=== PATIENT | female | born 1965 | race Caucasian/White ===

== ENCOUNTER 2017-11-03 06:14 | Inpatient (IN) | payer OTHER ==
[2017-11-02 08:26] VITALS: BMI 24.9
[2017-11-03] MEDS ORDERED: MIDAZOLAM HCL 2 MG/2 ML SINGLE DOSE VIAL ONE (07:09)
[2017-11-03] MEDS ORDERED: SUCCINYLCHOLINE CHLORIDE 200 MG/10 ML VIAL ONE ×3 (07:12→07:30)
[2017-11-03] MEDS ORDERED: ROCURONIUM BROMIDE 50 MG/5 ML VIAL ONE ×4 (07:12→11:55)
[2017-11-03] MEDS ORDERED: PROPOFOL 20 ML ONE ×4 (07:12→08:32)
[2017-11-03] MEDS ORDERED: DEXAMETHASONE SOD PHOSPHATE 4 MG/1 ML VIAL ONE (07:19)
[2017-11-03] MEDS ORDERED: ceFAZolin SODIUM 1 GM VIAL ONE ×4 (07:25→21:30)
[2017-11-03] MEDS ORDERED: HEPARIN NA (PORCINE) 5,000 UNITS/ML 1ML VIAL ONE ×2 (07:43→07:47)
[2017-11-03] MEDS ORDERED: PAPAVERINE HCL 30 MG/1 ML 10 ML VIAL NR ONE ×2 (07:43→07:47)
[2017-11-03] MEDS ORDERED: BUPIVACAINE HCL/PF 0.25% (2.5MG/ML) 10 ML VIAL ONE (07:43)
--- NOTE | 2017-11-03 07:49 | HP ---
History & Physical Update - History History: No Change - Physical Physical: No Change - Assessment Assessment: No Change - Plan Plan: No Change (Full H&P in chart from 10/26/2017 from PMD)
[2017-11-03] MEDS ORDERED: CEFAZOLIN 1 GM in DEXTROSE 5%-WATER - 50 ML IVPB ONE (08:00)
[2017-11-03] MEDS ORDERED: BUPIVACAINE LIPOSOME/PF (EXPAREL) 266 MG/20 ML VIAL NR ONE ×2 (08:15→09:00)
[2017-11-03] MEDS: ceFAZolin SODIUM 1 GM VIAL IVPB ONE ×2 (08:30→16:45)
[2017-11-03] MEDS ORDERED: LIDOCAINE HCL/PF 2% SDV 5ML VIAL ONE (08:38)
[2017-11-03] MEDS ORDERED: LIDOCAINE 1%/EPI 1:100000 (20 ML MULTI DOSE VIAL) ONE (08:51)
[2017-11-03] MEDS ORDERED: LIDOCAINE 1%/EPI 1:100000 (20 ML MULTI DOSE VIAL) IJ ONE (09:00)
[2017-11-03] MEDS ORDERED: SODIUM CHLORIDE 0.9% P/F 10 ML VIAL IJ ONE (09:47)
[2017-11-03] MEDS ORDERED: NEOSTIGMINE METHYLSULFATE 0.5 MG/ML - 10 ML MDV ONE (12:09)
[2017-11-03] MEDS ORDERED: GLYCOPYRROLATE 0.2 MG/1 ML VIAL ONE ×2 (12:09→13:08)
[2017-11-03] MEDS ORDERED: ONDANSETRON 4 MG/2 ML VIAL ONE (12:37)
[2017-11-03] MEDS ORDERED: diazePAM 5 MG TABLET PO PRN (14:27)
[2017-11-03] MEDS ORDERED: oxyCODONE HCL 5 MG TABLET PO PRN (14:27)
[2017-11-03] MEDS ORDERED: DEXTROSE 5%-0.45% SALINE 1,000 ML IV SCH (14:30)
[2017-11-03] MEDS ORDERED: ONDANSETRON 4 MG/2 ML VIAL IVPUSH PRN ×2 (14:48→17:00)
[2017-11-03] MEDS ORDERED: ACETAMINOPHEN INJECTION 100 ML IVPB ONE (14:49)
[2017-11-03] MEDS: ACETAMINOPHEN 1000 MG/100 ML VIAL (NON FORMULARY) IVPB SCH ×2 (14:50→21:36)
--- NOTE | 2017-11-03 14:54 | OP ---
Operative Note - Note: Operative Date: 11/03/17 Pre-Operative Diagnosis: h/o left breast cancer with mastectomy Operation: left breast reconstruciton using lower abdominal tissue Surgeon: Billy Onofre Crossbow Maker: Michi Yates Anesthesiologist/PAGE TECHNICIAN: Kiki Hernandez Anesthesia: General Estimated Blood Loss (mls): 150 Drains, Volume Out (mls): 250 (fowler) Fluid Volume Replaced (mls): 2,200 Operative Report Dictated: Yes
[2017-11-03] MEDS ORDERED: LACTATED RINGERS SOLUTION 1,000 ML IV SCH (15:00)
[2017-11-03] MEDS: CEFAZOLIN 1 GM in DEXTROSE 5%-WATER - 50 ML IVPB SCH ×2 (18:03→22:32)
[2017-11-03] MEDS ORDERED: DEXTROSE 5%-WATER - 50 ML IVPB ONE (21:30)
[2017-11-03] MEDS: DOCUSATE SODIUM 100 MG CAPSULE (FP) PO SCH (21:37)
[2017-11-04] MEDS ORDERED: DEXTROSE 5%-WATER - 50 ML IVPB ONE ×4 (03:53→21:29)
[2017-11-04] MEDS ORDERED: ceFAZolin SODIUM 1 GM VIAL ONE ×4 (03:53→21:29)
[2017-11-04] MEDS: ACETAMINOPHEN 1000 MG/100 ML VIAL (NON FORMULARY) IVPB SCH ×2 (03:57→09:11)
[2017-11-04] MEDS: CEFAZOLIN 1 GM in DEXTROSE 5%-WATER - 50 ML IVPB SCH ×4 (04:55→22:17)
--- NOTE | 2017-11-04 07:20 | PN ---
Progress Note (short form) - Note Progress Note: POD#1 s/p delayed left breast reconstruction with RAPHAEL flap. Did well overnight. Pain well controlled on IV Tylenol. Tolerating ice chips. AVSS I/O (overnight): 1087/1056 UO: 1000 KAT Breast:103 KAT Abdomen:56/55 Left breast soft, incisions C/D/I; Flap skin paddle warm, normal capillary refill, biphasic doppler signal Abdomen soft, ND, incisions C/D/I A/P: POD#1 s/p delayed left breast recon with RAPHAEL flap -Continue Q1 hour flap checks, Q2 at 2pm -Start clear liquid diet (no caffeine or chocolate), advance as tolerated -Daily ASA -Start Lovenox 40 daily -Hep lock IVF -OOB to chair->D/C janeth once OOB -PT consult -Social work consult for VNS for KAT drain care and incision/flap monitoring ( anticipated D/C 11/05/17) -Encourage IS -Continue Ancef -Oxycodone/Valium prn -Call with any [phone]
[2017-11-04] MEDS ORDERED: DEXTROSE 5%-0.45% SALINE 1,000 ML IV SCH (08:00)
[2017-11-04] MEDS: DOCUSATE SODIUM 100 MG CAPSULE (FP) PO SCH ×2 (10:59→21:37)
[2017-11-04] MEDS: ENOXAPARIN NA (PORCINE) 40 MG/0.4 ML DISP.SYRIN SQ SCH (10:59)
[2017-11-04] MEDS: ASPIRIN 325 MG TABLET PO SCH (10:59)
--- NOTE | 2017-11-04 11:10 | PN ---
Teaching Attending Note Name of Resident: Lila Harman ATTENDING PHYSICIAN STATEMENT I saw and evaluated the patient. I reviewed the resident's note and discussed the case with the resident. I agree with the resident's findings and plan as documented. SUBJECTIVE: Pt seen and examined in the ICU. Briefly, 52yo female with h/o left breast ca s/ p mastectomy who was electively admitted for left breast reconstruction with RAPHAEL flap now post op day 1. EBL 150mL, received 2200mL crystalloid, 250mL urine output. Good urine output overnight, now in chair, fowler out, tolerating clear liquids. +flatus. Pain controlled with current regimen. Denies shortness of breath, nausea or vomiting. OBJECTIVE: Last Vital Signs Temp Pulse Resp BP Pulse Ox 98.5 F 66 21 108/71 100 11/04/17 06:00 11/04/17 08:00 11/04/17 09:00 11/04/17 08:00 11/04/17 09:00 Intake & Output 11/01/17 11/02/17 11/03/17 11/04/17 23:59 23:59 23:59 23:59 Intake Total 3762.5 1087.5 Output Total 2197 1089 Balance 1565.5 -1.5 Weight 64.864 kg 68.901 kg Gen: NAD in chair Heart: RRR Lung: decreased breath sounds at the bases Abd: soft, appropriately tender Ext: no edema Drains: minimal serosanguinous fluid Active Medications Aspirin (Asa -) 325 mg PO DAILY [facility] Last Admin: 11/04/17 10:59 Dose: 325 mg Diazepam (Valium -) 5 mg PO Q8H PRN PRN Reason: ANXIETY Docusate Sodium (Colace -) 100 mg PO BID [facility] Last Admin: 11/04/17 10:59 Dose: 100 mg Enoxaparin Sodium (Lovenox -) 40 mg SQ DAILY [facility] Last Admin: 11/04/17 10:59 Dose: 40 mg Fentanyl (Sublimaze Injection -) 50 mcg IVPUSH [id number] PRN PRN Reason: PAIN-PACU ORDER X 4 DOSES ONLY Cefazolin Sodium 1 gm/ (Dextrose) 50 mls @ 100 mls/hr IVPB Q6H [facility] Ondansetron HCl (Zofran Injection) 4 mg IVPUSH Q6H PRN PRN Reason: NAUSEA AND/OR VOMITING Oxycodone HCl (Roxicodone -) 10 mg PO Q4H PRN PRN Reason: PAIN LEVEL 6-10 Oxycodone HCl (Roxicodone -) 5 mg PO Q4H PRN PRN Reason: PAIN LEVEL 1-5 ASSESSMENT AND PLAN: Left Breast Ca s/p Mastectomy s/p Left Breast Reconstruction with RAPHAEL Flap POD 1 - pain control - incentive spirometry - monitor drain output - flap monitoring - bowel regimen - OOB, activity, diet per surgery - DVT prophylaxis - continue post op ICU monitoring
--- NOTE | 2017-11-04 14:07 | CONSULT ---
Consultation: CONSULT REQUEST: We have been asked to medically evaluate this patient for post- op management. HISTORY OF PRESENT ILLNESS: 52F with PMH of Left Breast Ca s/p mastectomy who was admitted for elective Left breast reconstruction with a Deep Inferior Epigastric Planimeter Operator flap with Dr. Onofre. Pt tolerated procedure well, with estimated blood loss of 150ml. UOP of 1350ml overnight. Fowler removed this morning. Pt tolerating clear liquid diet. Pain is controlled with current pain regimen. (+) flatus, but (- ) BM. Pt denies nausea, vomiting, sob, abdominal pain, fever, chills. REVIEW OF SYSTEMS: CONSTITUTIONAL: Absent: fever, chills, diaphoresis HEENT: Absent: rhinorrhea, nasal congestion, ear pain, eye pain CARDIOVASCULAR: appropriate chest tightness/pain Absent: palpitations, irregular heart rate, lightheadedness, peripheral edema RESPIRATORY: Absent: cough, shortness of breath, dyspnea with exertion, orthopnea, wheezing, stridor GASTROINTESTINAL: Absent: abdominal pain, abdominal distension, nausea, vomiting, diarrhea, constipation GENITOURINARY: Absent: dysuria, hematuria MUSCULOSKELETAL: Absent: myalgia, arthralgia, joint swelling, back pain, neck pain SKIN: Absent: rash, itching, pallor NEUROLOGIC: Absent: headache, focal weakness or paresthesias, dizziness PSYCHIATRIC: Absent: anxiety, depression PHYSICAL EXAMINATION Vital Signs - 24 hr 11/03/17 11/03/17 11/03/17 14:31 14:45 15:00 Temperature 98.3 F Pulse Rate 82 76 73 Respiratory 14 16 18 Rate Blood Pressure 129/73 128/73 123/67 O2 Sat by Pulse 100 100 100 Oximetry (%) 11/03/17 11/03/17 11/03/17 15:15 15:30 15:45 Temperature Pulse Rate 59 L 68 69 Respiratory 18 16 18 Rate Blood Pressure 116/63 125/69 115/65 O2 Sat by Pulse 100 100 100 Oximetry (%) 11/03/17 11/03/17 11/03/17 16:00 16:15 16:30 Temperature Pulse Rate 88 88 86 Respiratory 14 16 14 Rate Blood Pressure 110/66 115/65 121/71 O2 Sat by Pulse 100 100 100 Oximetry (%) 11/03/17 11/03/17 11/03/17 16:44 16:45 17:33 Temperature 98.9 F 98.3 F Pulse Rate 74 86 76 Respiratory 16 16 17 Rate Blood Pressure 120/83 122/68 108/72 O2 Sat by Pulse 100 Oximetry (%) 11/03/17 11/03/17 11/03/17 20:00 20:58 22:00 Temperature 98.6 F 98.6 F Pulse Rate 67 70 Respiratory 14 13 16 Rate Blood Pressure 97/59 108/69 O2 Sat by Pulse 97 100 Oximetry (%) 11/04/17 11/04/17 11/04/17 00:00 02:00 04:00 Temperature 98.8 F Pulse Rate 80 66 62 Respiratory 18 14 14 Rate Blood Pressure 112/70 99/60 100/64 O2 Sat by Pulse 100 Oximetry (%) 11/04/17 11/04/17 11/04/17 06:00 06:09 08:00 Temperature 98.5 F Pulse Rate 68 66 Respiratory 16 22 Rate Blood Pressure 106/72 108/71 O2 Sat by Pulse 100 Oximetry (%) 11/04/17 11/04/17 11/04/17 09:00 10:00 12:00 Temperature 98.4 F Pulse Rate 72 89 Respiratory 21 20 20 Rate Blood Pressure 117/72 99/66 O2 Sat by Pulse 100 Oximetry (%) GENERAL: Awake, alert, and fully oriented, in no acute distress. Pt OOB to chair. HEAD: Normal with no signs of trauma. EYES: Extraocular movements intact, sclera anicteric, conjunctiva clear. No lid lag. EARS, NOSE, THROAT: Moist mucous membranes. NECK: Normal range of motion, supple without lymphadenopathy, JVD, or masses. LUNGS: CTAB. Incisions CDI. HEART: Regular rate and rhythm, normal S1 and S2 without murmur, rub or gallop. ABDOMEN: Soft, nontender, not distended, no guarding, no rebound. LOWER EXTREMITIES: Warm, well-perfused. No calf tenderness. No peripheral edema. NEUROLOGICAL: Cranial nerves II-XII grossly intact. Normal speech. PSYCHIATRIC: Cooperative. Good eye contact. Appropriate mood and affect. SKIN: Warm, dry, normal turgor, no rashes or lesions noted. DRAINS: Left upper breast, Left abdomen and Right abdomen all draining minimal amounts of serosanguinous fluid Active Medications Generic Name Dose Route Start Last Admin Trade Name Freq PRN Reason Stop Dose Admin Acetaminophen 650 mg 11/04/17 11:19 Tylenol - PO Q6H PRN PAIN LEVEL 1-5 Aspirin 325 mg 11/04/17 10:00 11/04/17 10:59 Asa - PO 325 mg DAILY MARIA GUADALUPE Administration Diazepam 5 mg 11/03/17 14:27 Valium - PO Q8H PRN ANXIETY Docusate Sodium 100 mg 11/03/17 22:00 11/04/17 10:59 Colace - PO 100 mg BID MARIA GUADALUPE Administration Enoxaparin Sodium 40 mg 11/04/17 10:00 11/04/17 10:59 Lovenox - SQ 40 mg DAILY MARIA GUADALUPE Administration Fentanyl 50 mcg 11/03/17 14:48 Sublimaze Injection - IVPUSH [id number] PRN PAIN-PACU ORDER X 4 DOSES ONLY Cefazolin Sodium 1 gm/ 50 mls @ 100 mls/hr 11/04/17 11:00 11/04/17 11:41 Dextrose IVPB 100 mls/hr Q6H MARIA GUADALUPE Administration Ondansetron HCl 4 mg 11/03/17 17:00 Zofran Injection IVPUSH Q6H PRN NAUSEA AND/OR VOMITING Oxycodone HCl 10 mg 11/03/17 14:27 Roxicodone - PO Q4H PRN PAIN LEVEL 6-10 Oxycodone HCl 5 mg 11/04/17 14:28 Roxicodone - PO Q4H PRN PAIN LEVEL 1-5 ASSESSMENT/PLAN: 52F with PMH of Left Breast Ca s/p mastectomy, admitted for elective Left breast reconstruction with a Deep Inferior Epigastric Planimeter Operator flap by Dr. Menchaca. # Left Breast Ca s/p mastectomy - s/p Left RAPHAEL flap with Dr. Onofre on 11/03/17 - POD #1 - post-op care per Surgery (Dr. Onofre): continue flap checks q2hr, fowler D/ Jorge A, OOB to chair, ASA 325mg daily - monitor KAT drain output - Incentive Spirometry - pain controlled with IV Ofirmev, pt completed last dose, now pain control with Oxycodone prn and Tylenol po prn - Zofran prn for nausea - Day 2 of IV Cefazolin - Valium prn for anxiety - Colace BID for bowel regimen # FEN/ppx - Fluids: po - Electrolytes: no labs - Nutrition: clear liquids - DVT ppx with Lovenox SQ - deconditioning ppx with PT # dispo - anticipated D/C tomorrow Dispo: We will continue to follow the patient. Thank you for this consultative opportunity. Visit type - Emergency Visit Emergency Visit: Yes ED Registration Date: 11/03/17 Care time: The patient presented to the Emergency Department on the above date and was hospitalized for further evaluation of their emergent condition. - New Patient This patient is new to me today: Yes Date on this admission: 11/04/17 - Critical Care Critical Care patient: Yes Total Critical Care Time (in minutes): 45 Critical Care Statement: The care of this patient involved high complexity decision making to prevent further life threatening deterioration of the patient 's condition and/or to evaluate & treat vital organ system(s) failure or risk of failure.
[2017-11-04] MEDS ORDERED: oxyCODONE HCL 5 MG TABLET PO PRN (14:28)
[2017-11-04] MEDS ORDERED: guaiFENesin 600 MG TABLET.ER (FP) PO PRN (16:38)
[2017-11-04] MEDS: oxyCODONE HCL 5 MG TABLET PO PRN (21:36)
[2017-11-04] MEDS: ACETAMINOPHEN 325 MG TABLET (FP) PO PRN (21:37)
[2017-11-05] MEDS: CEFAZOLIN 1 GM in DEXTROSE 5%-WATER - 50 ML IVPB SCH ×4 (06:00→22:43)
[2017-11-05] MEDS: oxyCODONE HCL 5 MG TABLET PO PRN ×2 (07:34→18:35)
[2017-11-05] MEDS: ACETAMINOPHEN 325 MG TABLET (FP) PO PRN ×2 (07:36→15:26)
[2017-11-05] MEDS: ASPIRIN 325 MG TABLET PO SCH (09:57)
[2017-11-05] MEDS: DOCUSATE SODIUM 100 MG CAPSULE (FP) PO SCH ×2 (09:57→22:42)
[2017-11-05] MEDS: ENOXAPARIN NA (PORCINE) 40 MG/0.4 ML DISP.SYRIN SQ SCH (09:57)
--- NOTE | 2017-11-05 09:59 | PN ---
Progress Note (short form) - Note Progress Note: Doing well but pain now in ambulation Will transfer to floor Probable discharge better
[2017-11-05] MEDS ORDERED: DEXTROSE 5%-WATER - 50 ML IVPB ONE ×4 (11:33→22:34)
[2017-11-05] MEDS ORDERED: ceFAZolin SODIUM 1 GM VIAL ONE ×4 (11:33→22:34)
--- NOTE | 2017-11-05 12:06 | PN ---
Teaching Attending Note Name of Resident: Lila Harman ATTENDING PHYSICIAN STATEMENT I saw and evaluated the patient. I reviewed the resident's note and discussed the case with the resident. I agree with the resident's findings and plan as documented. SUBJECTIVE: Patient seen and examined in the ICU. Awake and alert. Some musculoskeletal discomfort with deep breathing. Denies SOB. No acute events overnight. Intake & Output 11/02/17 11/03/17 11/04/17 11/05/17 23:59 23:59 23:59 23:59 Intake Total 3762.5 2307.5 290 Output Total 2197 1958 45 Balance 1565.5 349.5 245 Weight 143 lb 151 lb 14.4 oz 150 lb 6.4 oz Last Vital Signs Temp Pulse Resp BP Pulse Ox 98.7 F 75 17 112/73 98 11/05/17 06:00 11/05/17 06:00 11/05/17 06:00 11/05/17 06:00 11/05/17 09:00 Active Medications Acetaminophen (Tylenol -) 650 mg PO Q6H PRN PRN Reason: PAIN LEVEL 1-5 Last Admin: 11/05/17 07:36 Dose: 650 mg Aspirin (Asa -) 325 mg PO DAILY [facility] Last Admin: 11/05/17 09:57 Dose: 325 mg Diazepam (Valium -) 5 mg PO Q8H PRN PRN Reason: ANXIETY Last Admin: 11/04/17 18:33 Dose: 5 mg Docusate Sodium (Colace -) 100 mg PO BID [facility] Last Admin: 11/05/17 09:57 Dose: 100 mg Enoxaparin Sodium (Lovenox -) 40 mg SQ DAILY [facility] Last Admin: 11/05/17 09:57 Dose: 40 mg Guaifenesin (Mucinex -) 600 mg PO Q12H PRN PRN Reason: COUGH Last Admin: 11/04/17 17:33 Dose: 600 mg Cefazolin Sodium 1 gm/ (Dextrose) 50 mls @ 100 mls/hr IVPB Q6H [facility] Last Admin: 11/05/17 11:39 Dose: 100 mls/hr Ondansetron HCl (Zofran Injection) 4 mg IVPUSH Q6H PRN PRN Reason: NAUSEA AND/OR VOMITING Oxycodone HCl (Roxicodone -) 10 mg PO Q4H PRN PRN Reason: PAIN LEVEL 6-10 Oxycodone HCl (Roxicodone -) 5 mg PO Q4H PRN PRN Reason: PAIN LEVEL 1-5 Last Admin: 11/05/17 07:34 Dose: 5 mg Gen: NAD in chair Heart: RRR Lung: decreased breath sounds at the bases Chest: covered but clean and dry, mild appropriate tenderness Abdomen: Soft, (+) BS, NT Ext: no edema Drains: minimal serosanguinous fluid ASSESSMENT AND PLAN: Left Breast CA S/P Left Mastectomy S/P Left Breast Reconstruction with RAPHAEL Flap POD 1 - pain control - incentive spirometry - monitor drain output - flap monitoring - bowel regimen - OOB - VTE prophylaxis - Floor Dr Stringer
--- NOTE | 2017-11-05 14:53 | PN ---
Physical Exam: SUBJECTIVE: Patient seen and examined in the ICU. Pt reports chest tightness, similar to yesterday; pain is controlled with Oxycodone. Pt denies sob, abominal pain, nausea, vomiting, fever, chills. OBJECTIVE: Vital Signs Period Temp Pulse Resp BP Sys/Mauricio Pulse Ox Last 24 Hr 98.5 F-99.0 F 73-95 16-24 103-118/68-86 98-100 GENERAL: AAOx3, in NAD, OOB to chair. LUNGS: CTAB. HEART: RRR, no murmurs appreciated. ABDOMEN: Soft, nontender, nondistended, normoactive bowel sounds, no guarding. EXTREMITIES: Warm, well-perfused, no edema. PSYCH: Normal mood, normal affect. SKIN: Warm, dry, normal turgor, no rashes or lesions noted DRAINS: 3 KAT drains with minimal serosanguinous fluid Active Medications Generic Name Dose Route Start Last Admin Trade Name Freq PRN Reason Stop Dose Admin Acetaminophen 650 mg 11/04/17 11:19 11/05/17 07:36 Tylenol - PO 650 mg Q6H PRN Administration PAIN LEVEL 1-5 Aspirin 325 mg 11/04/17 10:00 11/05/17 09:57 Asa - PO 325 mg DAILY MARIA GUADALUPE Administration Diazepam 5 mg 11/03/17 14:27 11/04/17 18:33 Valium - PO 5 mg Q8H PRN Administration ANXIETY Docusate Sodium 100 mg 11/03/17 22:00 11/05/17 09:57 Colace - PO 100 mg BID MARIA GUADALUPE Administration Enoxaparin Sodium 40 mg 11/04/17 10:00 11/05/17 09:57 Lovenox - SQ 40 mg DAILY MARIA GUADALUPE Administration Guaifenesin 600 mg 11/04/17 16:38 11/04/17 17:33 Mucinex - PO 600 mg Q12H PRN Administration COUGH Cefazolin Sodium 1 gm/ 50 mls @ 100 mls/hr 11/04/17 11:00 11/05/17 11:39 Dextrose IVPB 100 mls/hr Q6H MARIA GUADALUPE Administration Ondansetron HCl 4 mg 11/03/17 17:00 Zofran Injection IVPUSH Q6H PRN NAUSEA AND/OR VOMITING Oxycodone HCl 10 mg 11/03/17 14:27 Roxicodone - PO Q4H PRN PAIN LEVEL 6-10 Oxycodone HCl 5 mg 11/04/17 14:28 11/05/17 07:34 Roxicodone - PO 5 mg Q4H PRN Administration PAIN LEVEL 1-5 ASSESSMENT/PLAN: 52F with PMH of Left Breast Ca s/p mastectomy, admitted for elective Left breast reconstruction with a Deep Inferior Epigastric Fishing Rod Mechanic flap by Dr. Menchaca. # Left Breast Ca s/p mastectomy - s/p Left RAPHAEL flap with Dr. Onofre on 11/03/17 - POD #2 - post-op care per Surgery (Dr. Onofre): continue flap checks q2hr, OOB to chair, ASA 325mg daily - monitor KAT drain output - Incentive Spirometry - pain controlled with Oxycodone prn and Tylenol po prn - Zofran prn for nausea - Day 3 of IV Cefazolin - Valium prn for anxiety - Colace BID for bowel regimen # FEN/ppx - Fluids: po - Electrolytes: no labs - Nutrition: regular - DVT ppx with Lovenox SQ - deconditioning ppx with PT # dispo - pt stable for transfer to med-surg floors Visit type - Emergency Visit Emergency Visit: Yes ED Registration Date: 11/03/17 Care time: The patient presented to the Emergency Department on the above date and was hospitalized for further evaluation of their emergent condition. - New Patient This patient is new to me today: No - Critical Care Critical Care patient: Yes Total Critical Care Time (in minutes): 36 Critical Care Statement: The care of this patient involved high complexity decision making to prevent further life threatening deterioration of the patient 's condition and/or to evaluate & treat vital organ system(s) failure or risk of failure.
[2017-11-05] MEDS ORDERED: CEFAZOLIN 1 GM in DEXTROSE 5%-WATER - 50 ML IVPB SCH (15:00)
--- NOTE | 2017-11-05 16:13 | PATH ---
Surgical Pathology Report Patient Name: KALYANI BRAMBILA [facility]. Rec. #: [id number] /Age/Gender: 1965 (Age: 52) / F Account: [id number] [facility]: 11/03/2017 Received: 11/04/2017 Reported: 11/05/2017 Physicians: Michi Yates Specimen(s) Received LEFT BREAST, MASTECTOMY SCAR Clinical History Left breast cancer Final Diagnosis SKIN, MASTECTOMY SCAR, LEFT, EXCISION: SKIN WITH DERMAL FIBROSIS AND MILD CHRONIC INFLAMMATION CONSISTENT WITH SCAR AND MATURE ADIPOSE TISSUE. Electronically Signed Tisha Deluna M.D. Gross Description Received in formalin labeled "left mastectomy scar," are 3 almonte, unoriented portions of skin with underlying soft tissue ranging from 3.8 x 1.5 x 0.9 cm to 9.0 x 0.6 x 0.5 cm. The epidermal surface of the longest portion displays a well-healed scar. The specimens are serially sectioned. No discrete lesions are identified. Lan Administrator sections are submitted in 2 cassettes. /11/04/2017 saudi/11/04/2017
[2017-11-05] MEDS ORDERED: ONDANSETRON 4 MG/2 ML VIAL IVPUSH PRN (17:47)
[2017-11-05] MEDS ORDERED: diazePAM 5 MG TABLET PO PRN (17:47)
[2017-11-05] MEDS ORDERED: CEFAZOLIN 1 GM in DEXTROSE 5%-WATER - 50 ML IVPB ONE (17:47)
[2017-11-05] MEDS ORDERED: oxyCODONE HCL 5 MG TABLET PO PRN (17:47)
[2017-11-05] MEDS ORDERED: guaiFENesin 600 MG TABLET.ER (FP) PO PRN (17:47)
[2017-11-05] MEDS ORDERED: BUPIVACAINE LIPOSOME/PF (EXPAREL) 266 MG/20 ML VIAL NR ONE ×2 (17:47)
[2017-11-05] MEDS ORDERED: ACETAMINOPHEN 325 MG TABLET (FP) PO PRN (17:47)
[2017-11-06] MEDS ORDERED: ceFAZolin SODIUM 1 GM VIAL ONE ×2 (05:44→10:34)
[2017-11-06] MEDS ORDERED: DEXTROSE 5%-WATER - 50 ML IVPB ONE ×2 (05:44→10:35)
[2017-11-06] MEDS: CEFAZOLIN 1 GM in DEXTROSE 5%-WATER - 50 ML IVPB SCH (05:50)
--- NOTE | 2017-11-06 07:41 | PN ---
Progress Note (short form) - Note Progress Note: POD#3 s/p delayed left breast reconstruction with RAPHAEL flap. Did well overnight. Pain well controlled. OOB and ambulating. AVSS Left breast soft, incisions C/D/I; Flap skin paddle warm, normal capillary refill, biphasic doppler signal Abdomen soft, ND, incisions C/D/I; Umbilical tape removed and there is blistering at edges. A/P: POD#3 s/p delayed left breast recon with RAPHAEL flap -D/C home today with VNS for drain care and incision/flap monitoring -Bacitracin BID to areas of blistering -F/U next week in office -Needs to take daily baby ASA for one month
[2017-11-06] MEDS: DOCUSATE SODIUM 100 MG CAPSULE (FP) PO SCH (09:10)
[2017-11-06] MEDS: oxyCODONE HCL 5 MG TABLET PO PRN (09:11)
[2017-11-06 09:47] VITALS: BP 133/90; PULSE 90; TEMP 97.9
[2017-11-06] MEDS ORDERED: ENOXAPARIN NA (PORCINE) 40 MG/0.4 ML DISP.SYRIN SQ SCH (10:00)
[2017-11-06] MEDS ORDERED: ASPIRIN 325 MG TABLET PO SCH (10:00)
[2017-11-06] MEDS ORDERED: BACITRACIN 15 GM TUBE TOPICAL OINTMENT TP SCH (10:00)
--- NOTE | 2017-11-17 20:34 | SURG ---
Surgery Computer System Validation Specialist Note Computer System Validation Specialist: Gabriela Winchester PA-C Date of Service: 11/03/17 Diagnosis: h/o left breast cancer with mastectomy Procedure: left breast reconstruciton using lower abdominal tissue I was present for the entirety of the operative procedure. For further detail, please refer to operative report. Visit type - Case Type Case Type: Scheduled - Emergency Emergency Visit: No - New patient This patient is new to me today: Yes Date on this admission: 11/03/17
--- NOTE | 2017-11-18 13:09 | OP ---
DATE OF OPERATION: 11/03/2017 PREOPERATIVE DIAGNOSES: 1. Personal history of left breast cancer. 2. Acquired abscess of left breast and nipple. POSTOPERATIVE DIAGNOSES: 1. Personal history of left breast cancer. 2. Acquired abscess of left breast and nipple. PROCEDURES: 1. Delayed left breast reconstruction with deep inferior epigastric orthopedic specialist microvascular free flap. 2. Partial resection of left 3rd rib. 3. Exploration of left internal mammary vessels with extensive adventitiectomies. 4. Intraoperative angiography of left mastectomy skin flaps and lower abdominal flap x2. 5. Processing and interpretation of intraoperative angiography images x2. 6. Bilateral ultrasound-guided transverse abdominus plane regional nerve blocks. ATTENDING SURGERY: Billy Disla MD CO-SURGEON: Art Yates MD SENIOR MAINFRAME DEVELOPER: MARIZOL Anglin ANESTHESIA: General endotracheal. ESTIMATED BLOOD LOSS: 150 mL. SPECIMEN: Left breast skin to pathology. DRAINS: 1. A No. 15 round Issac drain x1 to left breast. 2. A No. 15 round Issac drain x2 to abdomen. COMPLICATIONS: None. DISPOSITION: Stable to recovery room, extubated. INDICATIONS: The patient is a 52-year-old female with a history of left breast cancer who underwent a left mastectomy without reconstruction. The patient presents with an acquired absence of the left breast for delayed reconstruction. Preoperatively, she was counseled about autologous versus implant-based reconstruction. The patient is most appropriately a candidate for autologous reconstruction using her lower abdominal tissue. The risks, benefits, and alternatives of this were discussed with the patient in detail, and all questions were answered. The risks include, but are not limited to, bleeding, infection, pain, partial or complete flap loss, damage to neighboring structures including nerves, arteries, veins, and tendons. The patient understands these risks and has elected to proceed with surgery. DESCRIPTION OF PROCEDURE: After proper identification and marking of the patient in the preoperative holding area, the patient was transported to the operating room and placed supine on the table while noninvasive anesthesia monitors were applied. Intravenous access was established. General anesthesia was administered, and the patient was intubated without difficulty. SCD boots were applied to bilateral extremities. Intravenous antibiotics were then given. A Butler catheter was then placed. The patient's bilateral breasts as well as abdomen and flanks were then prepped and draped in the usual sterile fashion. At this point, Dr. Yates and Rj began the reconstruction working independently as co-surgeons with separate instrument set ups. Attention was first turned towards the left breast where the previous horizontal mastectomy scar was incised with a No. 10 blade. This was carried down through the full thickness of the mastectomy skin flaps until the pectoralis major muscle was identified. At this point, the inferior skin flap was raised down to the level of the inframammary fold. It was then raised out laterally to the level of the anterior axillary line. The superior skin flap was then raised up to the level of the 2nd rib superiorly. At this point, the pocket was irrigated, and hemostasis was ensured. Attention was then turned towards harvesting of recipient vessels. The interspace between the 2nd and 3rd ribs was identified. An inferolaterally based pectoralis major muscle flap was then designed, and this was incised with electrocautery. The muscle flap was then gently retracted inferiorly in order to expose the interspace between the 2nd and 3rd rib. Electrocautery was then used to incise the periosteum and perichondrium on the superior surface of the 3rd rib. A subperiosteal dissection was then performed circumferentially around the 3rd rib. At this point, a rongeur was used to partially resect the left 3rd rib at the costochondral junction. Once this resection was completed, the periosteum on the deep surface was carefully incised. The underlying internal mammary vessels were vessels. At this point, Microvascular instruments and techniques were used to explore the internal mammary vessels. There were noted to be both medial and lateral internal mammary veins. Extensive adventitiectomies were performed on both the artery as well as the accompanying medial and lateral veins. Once this was completed, a moist gauze was placed into the dissection pocket in preparation for a microvascular anastomoses. Concurrently, harvesting of the lower abdominal flap was performed. Skin hooks were placed at the 12 and the 6 o'clock position of the umbilicus, and the umbilicus was circumferentially incised with a No. 15 blade. A periumbilical dissection was then performed with a Metzenbaum scissor with care taken to leave adequate periumbilical fat. The superior and inferior limbs of the lower abdominal flap were incised. The superior limb was carried down through the full thickness of the subcutaneous tissue with electrocautery. At the anterior abdominal wall, the superior abdominal skin flap was raised up to the xiphoid process in the midline and the costal margin bilaterally. The inferior incision was then carried down through the subcutaneous tissue in a [id number] fashion. Bilateral superficial inferior epigastric veins were identified. More proximal dissections were performed along these veins until adequate length and caliber had been achieved, and the veins were then ligated and divided. At this point, the flap was then raised just above the level of the anterior abdominal wall on the patient's left side proceeding from a lateral to medial direction. There was noted to be a large lateral orthopedic specialist that coincided with the dominant orthopedic specialist on the patient's preoperative imaging. This was located in the central portion of the flap. There was noted to be a smaller lateral orthopedic specialist more superior and a smaller lateral orthopedic specialist inferior. The decision was made to base the flap on these 3 perforators. Therefore, the perforators were circumferentially dissected as they exited through the fascia. The fascia was then opened superiorly and inferiorly as well as the intervening fascia between the perforators. At this point, retrograde orthopedic specialist dissections were performed along all of the perforators. The main orthopedic specialist was dissected first, and care was taken to split the rectus abdominis muscle fibers longitudinally. Muscular side branches were individually identified, circumferentially dissected, ligated, and divided. Proceeding superiorly from the dominant orthopedic specialist, a subfascial course of the pedicle was noted. This was carefully freed from the underside of the fascia, and the more superior orthopedic specialist was carefully dissected as it exited through an inscription in the fascia. A small cuff of fascia was maintained around the orthopedic specialist in order to maintain viability. At this point, the superior continuation of the pedicle was ligated and divided. The pedicle and flap were then raised from a superior to inferior direction. The most inferior orthopedic specialist was dissected in a retrograde fashion as well such that 3 perforators were included with the flap. At this point, a more proximal pedicle dissection was performed until adequate length and caliber had been achieved on the inferior epigastric system. The remainder of the lower abdominal tissue was then raised off of the anterior abdominal wall. Once this was completed, a Doppler signal was achieved on the skin paddle. Zones 3 and 4 were then excised and discarded. At this point, the SPY system was brought into the field, and a 4-mL intravenous injection of indocyanine green was given. Angiography of the lower abdominal flap was then performed. There was noted to be good perfusion to zones 1 and 2. At this point, relative perfusion data was assessed and was noted to be well perfused throughout. A skin paddle was then designed around the skin signal and the remainder of the flap deepithelialized. At this point, the inferior epigastric pedicle was ligated and divided at the most proximal extent of the dissection. It was brought up to the left breast pocket where it was temporarily stapled in place. The microvascular anastomoses were then performed. A 2.5-mm [employer] christian science healer was used to anastomose the larger of the 2 flap veins to the retrograde stump of the medial internal mammary vein. Release of all clamps revealed good backflow across this anastomosis. Next, a 2nd venous anastomosis was performed between the remaining inferior epigastric vein and the anterior grade stump of the medial internal mammary vein. Release of all clamps revealed good flow across this anastomosis as well. Next, the arterial anastomosis was performed between the internal mammary artery and the inferior epigastric artery, and an 8-0 nylon suture was used to anastomose these vessels in a simple interrupted fashion, and release of all clamps revealed good flow across this anastomosis. Attention at this point was turned towards a 3rd venous anastomosis between the superior inferior epigastric vein and the lateral internal mammary vein. A 2.5-mm [employer] christian science healer was used to anastomose the superior inferior epigastric vein to the lateral internal mammary vein, and release of all clamps revealed good flow across this anastomosis as well. At this point, the left breast pocket was copiously irrigated, and hemostasis was ensured. Attention was turned toward insetting of the flap. Care was taken to ensure good lie of the pedicle without twisting or kinking. Once this was ensured, the flap was carefully positioned into the left chest wall pocket. It was inset to the chest wall using a 2-0 Vicryl suture in a simple interrupted fashion along the medial, inferior, and lateral aspects. The mastectomy skin flaps were then redraped. A rim of mastectomy skin flap was excised, and this was passed off the field to pathology as left breast skin. The amount of skin paddle to be externalized was then marked, and redundant skin paddle was deepithelialized. At this point, a No. 15 round Issac drain was placed into the left breast pocket was brought out through a separate stab incision laterally and secured to the skin with a 3-0 nylon suture. The left breast skin closure was then performed in layers using a 3-0 Monocryl in a buried deep dermal fashion followed by a 3-0 Stratafix in a running subcuticular fashion. Concurrently, closure of the abdomen was performed. A primary fascial closure was performed using a No. 0 barbed resorbable suture in a simple running fashion. Once this was completed, ultrasound system was brought into the field and was sterilely draped. Bilateral transverse abdominus plane region nerve blocks were then performed using a local anesthetic solution consisting of 20 mL of Exparel mixed with 30 mL of 0.25% Marcaine and 80 mL of normal saline. A total of 30 mL of this local anesthetic mixture was injected into each transverse abdominis plane again under ultrasound guidance. Once the regional nerve blocks were completed, the patient was placed into a flexed position. Two No. 15 round Issac drains were placed in the abdominal pocket and brought out through separate stab incisions laterally and secured to the skin with 3-0 nylon sutures. The lower abdominal skin flaps were then temporarily stapled closed. A layered closure was then performed using a 2-0 Vicryl in an interrupted buried fashion in Herman layer followed by a 3-0 PDS in a buried deep dermal fashion and finally a 4-0 Monocryl in a running subcuticular fashion. The site of the umbilicus transposition was marked, and a vertical oriented ellipse with a core of fat was excised. The umbilicus was transposed and inset using a 3-0 PDS in a buried deep dermal fashion followed by a 5-0 nylon in a simple running fashion. Once all incisions were intact, examination of the left breast skin paddle revealed good perfusion with a strong biphasic signal. Therefore, attention was turned toward dressings where Prineo tape was applied to the lower abdominal closure line. The patient at this point was slowly awakened and extubated without incident and transported to recovery room in stable condition. BILLY DISLA M.D. [id number]
== END 2017-11-06 15:53 | disposition home or self-care (01) | DRG 585 ==
LOC: JASUSAT 06:14 → JSAMEDAYSX 14:28 → JICU 16:45 → J6S 11-05 17:08
PROVIDERS: ADMIT Plastic Surgery; ATTEND Plastic Surgery
PROC: 0PB10ZZ Excision of 1 to 2 Ribs, Open Approach (ICD-10-PCS; 2017-11-03)
PROC: 05JY0ZZ Inspection of Upper Vein, Open Approach (ICD-10-PCS; 2017-11-03)
PROC: B54PZZA Ultrasonography of Bilateral Upper Extremity Veins, Guidance (ICD-10-PCS; 2017-11-03)
PROC: B51NYZZ Fluoroscopy of Left Upper Extremity Veins using Other Contrast (ICD-10-PCS; 2017-11-03)
PROC: 0HRU077 Replacement of Left Breast using Deep Inferior Epigastric Artery Perforator Flap, Open Approach (ICD-10-PCS; principal; 2017-11-03 08:00)
PROC: 0HBUXZZ (ICD-10-PCS; 2017-11-03 08:00)
DX: Z42.1 Encounter for breast reconstruction following mastectomy (principal); Z90.12 Acquired absence of left breast and nipple; Z85.3 Personal history of malignant neoplasm of breast; L90.5 Scar conditions and fibrosis of skin
CPT/HCPCS: 86850; 86900; 86901; 88302-TC; 94760; 97116-GP; 97161-GP; J0131; J1644